=== PATIENT | female | born 1985 | race Caucasian/White ===

== ENCOUNTER → 2024-09-14 | Outpatient (REF) | payer BC | LOC: RAD 09:23 | PROVIDERS: ATTEND Internal Medicine | DX: M54.2 Cervicalgia (principal); M25.512 Pain in left shoulder; M79.12 Myalgia of auxiliary muscles, head and neck | CPT/HCPCS: 72050 ==

== ENCOUNTER → 2024-10-11 | Outpatient (REF) | payer BC | LOC: CT 11:33 | PROVIDERS: ATTEND Internal Medicine | DX: M79.602 Pain in left arm (principal); R20.0 Anesthesia of skin ==

== ENCOUNTER → 2025-03-29 | Outpatient (REF) | payer BC | LOC: US 14:20 | PROVIDERS: ATTEND Internal Medicine | DX: R31.29 Other microscopic hematuria (principal) | CPT/HCPCS: 74018; 76770 ==